=== PATIENT | female | born 1990 | race Caucasian/White ===

== ENCOUNTER → 2018-02-17 17:11 | Outpatient (CLI) | payer MEDICAID, SELFPAY ==
[2018-02-20 13:30] LABS: HPV Reflexed? NOT INDICATED
== END ==
PROVIDERS: Family Provider Student in an Organized Health Care Education/Training Program; PCP Student in an Organized Health Care Education/Training Program; Referring Provider Obstetrics & Gynecology; Visit Provider Obstetrics & Gynecology
DX: Z12.4 Encounter for screening for malignant neoplasm of cervix (principal)
CPT/HCPCS: 88175; G0145

== ENCOUNTER → 2018-07-14 16:57 | Outpatient (CLI) | payer MEDICAID, SELFPAY ==
[2018-07-14 14:49] VITALS: BMI 44.8
== END ==
PROVIDERS: Family Provider Student in an Organized Health Care Education/Training Program; PCP Student in an Organized Health Care Education/Training Program; Referring Provider Nurse Practitioner Women's Health; Visit Provider Nurse Practitioner Women's Health
DX: R30.0 Dysuria (principal); R10.2 Pelvic and perineal pain
CPT/HCPCS: 87086; 87088

== ENCOUNTER → 2019-01-16 16:58 | Outpatient (CLI) | payer MEDICAID, SELFPAY ==
[2019-01-16 13:58] VITALS: BMI 44.8
[2019-01-16 20:09] LABS: Chlamydia Trachomatis by PCR Negative (Negative); Neisserai gonorrhoeae by PCR Negative (Negative); Probe Check PASS; Sample Adequacy Control PASS; Specimen Processing Control PASS
== END ==
PROVIDERS: Family Provider Student in an Organized Health Care Education/Training Program; PCP Student in an Organized Health Care Education/Training Program; Referring Provider Nurse Practitioner Women's Health; Visit Provider Nurse Practitioner Women's Health
DX: Z11.3 Encounter for screening for infections with a predominantly sexual mode of transmission (principal)
CPT/HCPCS: 87491; 87591

== ENCOUNTER → 2019-01-22 14:17 | Outpatient (CLI) | payer MEDICAID, SELFPAY ==
[2019-01-16 13:58] VITALS: BMI 44.8
--- NOTE | 2019-01-22 14:21 | US_ITS ---
STUDY: ULTRASOUND OF THE FEMALE PELVIS - COMPLETE REASON FOR EXAM: Female, 28 years old. Pain TECHNIQUE: Transabdominal and transvaginal ultrasound images were obtained of the pelvis TECHNICAL QUALITY: Adequate. COMPARISON: Pelvic ultrasound April 10, 2010 FINDINGS: The uterus measures 9.1 x 6.8 x 4.5 cm. Normal uterine cervix. The endometrium measures 7 mm in thickness. There is no demonstrated myometrial mass. Nabothian cysts are present measuring up to 2.1 cm. The right ovary measures 4.2 x 2.9 x 2.2 cm. There is no right ovarian cyst or ovarian mass. There is no visualized right adnexal mass or complex lesion. There is normal arterial and normal venous vascularity. The left ovary measures 3.4 x 2.1 x 1.8 cm. There is no left ovarian cyst or ovarian mass. There is no visualized left adnexal mass or complex lesion. There is normal arterial and normal venous vascularity. There is no fluid in the cul-de-sac. US/Transvaginal Non- IMPRESSION: No acute pelvic pathology identified. Nabothian cysts measuring up to 2.1 cm. Electronically Signed: Tahir Zhu, at 20:18 EDT Tel , Service support ,
--- NOTE | 2019-01-22 14:21 | US_ITS ---
STUDY: ULTRASOUND OF THE FEMALE PELVIS - COMPLETE REASON FOR EXAM: Female, 28 years old. Pain TECHNIQUE: Transabdominal and transvaginal ultrasound images were obtained of the pelvis TECHNICAL QUALITY: Adequate. COMPARISON: Pelvic ultrasound April 10, 2010 FINDINGS: The uterus measures 9.1 x 6.8 x 4.5 cm. Normal uterine cervix. The endometrium measures 7 mm in thickness. There is no demonstrated myometrial mass. Nabothian cysts are present measuring up to 2.1 cm. The right ovary measures 4.2 x 2.9 x 2.2 cm. There is no right ovarian cyst or ovarian mass. There is no visualized right adnexal mass or complex lesion. There is normal arterial and normal venous vascularity. The left ovary measures 3.4 x 2.1 x 1.8 cm. There is no left ovarian cyst or ovarian mass. There is no visualized left adnexal mass or complex lesion. There is normal arterial and normal venous vascularity. There is no fluid in the cul-de-sac. US/Pelvic (Non ) IMPRESSION: No acute pelvic pathology identified. Nabothian cysts measuring up to 2.1 cm. Electronically Signed: Tahir Zhu, at 20:18 EDT Tel , Service support ,
== END ==
PROVIDERS: Family Provider Student in an Organized Health Care Education/Training Program; PCP Student in an Organized Health Care Education/Training Program; Referring Provider Nurse Practitioner Women's Health; Visit Provider Nurse Practitioner Women's Health
DX: R10.2 Pelvic and perineal pain (principal)
CPT/HCPCS: 76830; 76856

== ENCOUNTER → 2019-12-03 09:07 | Outpatient (CLI) | payer MEDICAID, SELFPAY ==
[2019-12-03 08:58] VITALS: BMI 44.8
[2019-12-03 09:51] LABS: Prolactin 10.5 ng/mL; Thyroid Stim Hormone (TSH) 1.29 uIU/mL (0.358-3.74)
== END ==
PROVIDERS: PCP Student in an Organized Health Care Education/Training Program; Referring Provider Nurse Practitioner Women's Health; Visit Provider Nurse Practitioner Women's Health
DX: N92.6 Irregular menstruation, unspecified (principal)
CPT/HCPCS: 36415; 84146; 84443

== ENCOUNTER → 2019-12-09 14:25 | Outpatient (CLI) | payer MEDICAID, SELFPAY ==
[2019-12-03 08:58] VITALS: BMI 44.8
--- NOTE | 2019-12-09 14:26 | US_ITS ---
STUDY: ULTRASOUND TRANSVAGINAL CLINICAL: Female, 29 years old. IRREGULAR MENSES TECHNIQUE: Real-time examined with grayscale image documentation. COMPARISON: Prior pelvic ultrasound of December 09, 2019 FINDINGS: The uterus is retroflexed, midline and measures 12.2 x 6.8 x 6.0 cm. Normal endometrial thickness measuring 16 mm. There is a thick walled cystic structure within the endometrium measuring 3.1 x 3.4 mm with a thin surrounding layer of fluid. Multiple nabothian cysts of the cervix measuring 1.5 cm and 0.9 cm. The right ovary measures 3.0 x 2.1 x 2.4 cm. No dominant cyst or mass. Normal Doppler flow. The left ovary measures 3.4 x 2.3 x 1.7 cm. There is no dominant mass or cyst. Normal Doppler flow. No additional adnexal masses or free fluid. Polycystic ovary disease: No. US/Transvaginal Non- IMPRESSION: 3.1 x 3.4 mm filling defect in the endometrial space which is cystic with a thick wall and resembles a gestational sac equivalent to an approximate 4 week gestation with a small subchorionic hemorrhage. Normal ovaries bilaterally. Normal Doppler flow. No additional adnexal masses or free fluid. Electronically Signed: Tigist Aviles MD at 23:28 EDT , Service support ,
--- NOTE | 2019-12-09 14:26 | US_ITS ---
STUDY: ULTRASOUND TRANSVAGINAL CLINICAL: Female, 29 years old. IRREGULAR MENSES TECHNIQUE: Real-time examined with grayscale image documentation. COMPARISON: Prior pelvic ultrasound of December 09, 2019 FINDINGS: The uterus is retroflexed, midline and measures 12.2 x 6.8 x 6.0 cm. Normal endometrial thickness measuring 16 mm. There is a thick walled cystic structure within the endometrium measuring 3.1 x 3.4 mm with a thin surrounding layer of fluid. Multiple nabothian cysts of the cervix measuring 1.5 cm and 0.9 cm. The right ovary measures 3.0 x 2.1 x 2.4 cm. No dominant cyst or mass. Normal Doppler flow. The left ovary measures 3.4 x 2.3 x 1.7 cm. There is no dominant mass or cyst. Normal Doppler flow. No additional adnexal masses or free fluid. Polycystic ovary disease: No. US/Pelvic (Non ) IMPRESSION: 3.1 x 3.4 mm filling defect in the endometrial space which is cystic with a thick wall and resembles a gestational sac equivalent to an approximate 4 week gestation with a small subchorionic hemorrhage. Normal ovaries bilaterally. Normal Doppler flow. No additional adnexal masses or free fluid. Electronically Signed: Tigist Aviles MD at 23:28 EDT , Service support ,
[2019-12-10 18:25] LABS: hCG Titer Quant., Serum 1069 mIU/mL (1-3)
== END ==
PROVIDERS: PCP Student in an Organized Health Care Education/Training Program; Referring Provider Nurse Practitioner Women's Health; Visit Provider Nurse Practitioner Women's Health
DX: N92.6 Irregular menstruation, unspecified (principal); R93.89 Abnormal findings on diagnostic imaging of other specified body structures
CPT/HCPCS: 36415; 76830; 76856; 84702

== ENCOUNTER → 2019-12-30 11:20 | Outpatient (CLI) | payer MEDICAID, SELFPAY ==
[2019-12-03 08:58] VITALS: BMI 44.8
--- NOTE | 2019-12-30 11:21 | US_ITS ---
STUDY: FIRST TRIMESTER OBSTETRICAL ULTRASOUND REASON FOR EXAM: Female, 29 years old dating LMP: 10/26/2019. TECHNIQUE: Transvaginal TECHNICAL QUALITY: Adequate. PRIOR ULTRASOUND: Comparison is made with prior examination dated 12/09/2019. FINDINGS: There is visualization of a single gestational sac in a normal intrauterine position. The mean sac diameter (MSD) measures 2.62 cm, indicating an estimated gestational age (EGA) of 7 weeks, 5 days. The gestational sac shape is within normal limits. There is a visualized yolk sac. The yolk sac measures 3.5 mm. The placenta is non-visualized. There is visualization of a live embryo. The crown-rump length (CRL) measures 1.65 cm, indicating an estimated gestational age (EGA) of 7 weeks, 6 days. There is demonstrated cardiac activity with a heart rate of 154 bpm. The estimated gestation age (EGA) by LMP is 9 weeks, 2 days. The estimated date of delivery (ROSANNA) by LMP is 08/01/2020. The estimated gestation age (EGA) by US is 7 weeks, 5 days. The estimated date of delivery (ROSANNA) by US is 08/12/2020. The uterus measures 11.2 cm x 8.5 cm x 7.2 cm. There is no demonstrated uterine fibroid. The cervix is closed. Nabothian cysts are seen within the cervix. The right ovary measures 4.5 cm x 2.9 cm x 2 cm. There is no right ovarian cyst. There is no visualized right adnexal mass or complex lesion. The left ovary measures 3.9 cm x 2.6 cm by 2.2 cm. There is no left ovarian cyst. There is no visualized left adnexal mass or complex lesion. There is no fluid in the cul de sac. US/Init OB < 14Wks US IMPRESSION: Single live intrauterine gestation with a mean gestational age of 7 weeks and 5 days. Electronically Signed: Boubacar Eddy, at 8:21 EDT , Service support ,
== END ==
PROVIDERS: PCP Student in an Organized Health Care Education/Training Program; Referring Provider Obstetrics & Gynecology; Visit Provider Obstetrics & Gynecology
DX: Z34.90 Encounter for supervision of normal pregnancy, unspecified, unspecified trimester (principal)
CPT/HCPCS: 76801

== ENCOUNTER → 2020-01-27 12:49 | Outpatient (CLI) | payer MEDICAID, SELFPAY ==
[2020-01-11 16:20] VITALS: BMI 44.8
[2020-01-27 13:21] LABS: hCG Titer Quant., Serum 51 mIU/mL (1-3)
== END ==
PROVIDERS: PCP Student in an Organized Health Care Education/Training Program; Referring Provider Nurse Practitioner Women's Health; Visit Provider Nurse Practitioner Women's Health
DX: O03.9 Complete or unspecified spontaneous abortion without complication (principal)
CPT/HCPCS: 36415; 84702

== ENCOUNTER → 2020-02-04 09:06 | Outpatient (CLI) | payer MEDICAID, SELFPAY ==
[2020-01-27 13:43] VITALS: BMI 44.8
[2020-02-04 09:49] LABS: hCG Titer Quant., Serum 17 mIU/mL (1-3)
== END ==
PROVIDERS: PCP Student in an Organized Health Care Education/Training Program; Referring Provider Nurse Practitioner Women's Health; Visit Provider Nurse Practitioner Women's Health
DX: O03.9 Complete or unspecified spontaneous abortion without complication (principal)
CPT/HCPCS: 36415; 84702